=== PATIENT | female | born 1985 | race American Indian/Alaskan Native ===

== ENCOUNTER 2018-05-31 19:04 | Emergency (ER) | payer OTHER ==
[2018-05-31 19:13] VITALS: BP 121/66
[2018-05-31] MEDS ORDERED: MOTRIN PO ONE (22:10)
[2018-05-31] MEDS ORDERED: MOTRIN ONE (22:16)
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
[2018-06-01] MEDS ORDERED: NORCO 5/325 PO ONE (01:20)
[2018-06-01] MEDS ORDERED: NORCO 5/325 ONE (01:23)
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
== END 2018-06-01 03:15 | disposition home or self-care (01) ==
LOC: ED 19:04
DX: M54.5 Low back pain (principal); F17.200 Nicotine dependence, unspecified, uncomplicated; V49.09XA Driver injured in collision with other motor vehicles in nontraffic accident, initial encounter; Y93.89 Activity, other specified; Y99.8 Other external cause status; Y92.488 Other paved roadways as the place of occurrence of the external cause
CPT/HCPCS: 72070; 72100

== ENCOUNTER 2019-04-27 21:25 | Emergency (ER) | payer OTHER ==
--- NOTE | 2019-04-27 22:26 | Emergency Department Report ---
Blank Doc - Documentation Documentation: This is a 34-year-old female that presents with left hip pain. Denies any inj uries or trauma. This initial assessment/diagnostic orders/clinical plan/treatment(s) is/are subject to change based on patient's health status, clinical progression and re- assessment by fellow clinical providers in the ED. Further treatment and workup at subsequent clinical providers discretion. Patient/guardians urged not to elope from the ED as their condition may be serious if not clinically assessed and managed. Initial orders include: 1- Patient sent to [facility] for further evaluation and treatment 2- Xray
[2019-04-27 23:52] VITALS: BP 101/66
--- NOTE | 2019-04-27 23:53 | Emergency Department Report ---
ED Extremity Problem HPI - General Chief complaint: Extremity Problem,Nontraumatic Stated complaint: LEFT LEG PAIN Time Seen by Provider: 04/27/19 22:25 Source: patient Mode of arrival: Ambulatory Limitations: No Limitations - History of Present Illness Initial comments: 34-year-old -Russian female presents to the emergency room for left hip pain 2 weeks. Patient denies any trauma. Patient has not taken anything for pain. Patient reports she is not able to ambulate. Patient reports a past medical history of sleep disorder. MD Complaint: extremity pain Onset/Timin -: week(s) Location: left, lower extremity (hip) History of Same: Yes Severity scale (0 -10): 10 Quality: aching Consistency: intermittent Improves with: nothing Worsens with: walking Associated Symptoms: denies other symptoms - Related Data Previous Rx's Medication Instructions Recorded Last Taken Type Diclofenac Sodium 50 mg PO Q8H PRN #30 tablet. 06/01/18 Unknown Rx Naproxen [Naprosyn] 500 mg PO BID PRN #20 tablet 04/27/19 Unknown Rx Allergies Allergy/AdvReac Type Severity Reaction Status Date / Time No Known Allergies Allergy Unverified 05/31/18 19:13 ED Review of Systems ROS: Stated complaint: LEFT LEG PAIN Other details as noted in HPI Comment: All other systems reviewed and negative ED Past Medical Hx - Past Medical History Additional medical history: Sleeping Disorder - Surgical History Past Surgical History?: No - Social History Smoking Status: Current Some Day Smoker Substance Use Type: None - Medications Home Medications: Home Medications Medication Instructions Recorded Confirmed Last Taken Type Diclofenac Sodium 50 mg PO Q8H PRN #30 tablet. 06/01/18 Unknown Rx Naproxen [Naprosyn] 500 mg PO BID PRN #20 tablet 04/27/19 Unknown Rx ED Physical Exam - General Limitations: No Limitations General appearance: alert, in no apparent distress - Head Head exam: Present: atraumatic, normocephalic - Eye Eye exam: Present: normal appearance - ENT ENT exam: Present: mucous membranes moist - Neck Neck exam: Present: full ROM - Expanded Lower Extremity Exam Left Hip exam: Present: full ROM Upper Leg exam: Present: normal inspection, full ROM Knee exam: Present: normal inspection, full ROM Lower Leg exam: Present: normal inspection, full ROM Gait: Positive: observed and normal - Back Exam Back exam: Present: normal inspection - Neurological Exam Neurological exam: Present: alert, oriented X3 - Psychiatric Psychiatric exam: Present: normal affect, normal mood ED Medical Decision Making - Radiology Data Radiology results: report reviewed Patient: JORGE L GRAHAM MR#: [id number] : 1985 Acct:[id number] Age/Sex: 34 / F ADM Date: 04/27/19 Loc: ED Attending Dr: Ordering Physician: NANCY CHAHAL NP Date of Service: 04/27/19 Procedure(s): XR hip 2-3V LT Accession Number(s): [id number] cc: NANCY CHAHAL NP Fluoro Time In Minutes: PROCEDURE: Left hip. TECHNIQUE: AP pelvis, frog leg lateral view of the left hip. HISTORY: Hip pain. COMPARISONS: None. FINDINGS: The bones appear intact without fracture or dislocation. The joint spaces appear normal. The soft tissues are unremarkable. IMPRESSION: Normal study. This document is electronically signed by Shawn Pena MD., Apr 27 2019 11:51:14 PM ET Transcribed By: MRM Dictated By: SHAWN PENA MD Electronically Authenticated By: SHAWN PENA MD Signed Date/Time: 04/27/192352 DD/ 47 TD/TT: 04/27/192247 - Medical Decision Making 34-year-old comes in for left hip pain. Patient x-rays were normal examination. Discussed outpatient she can take ibuprofen or naproxen for pain management. Critical care attestation.: If time is entered above; I have spent that time in minutes in the direct care of this critically ill patient, excluding procedure time. ED Disposition Clinical Impression: Pain in left hip, Morbidly obese Disposition: DC-01 TO HOME OR SELFCARE Is pt being admited?: No Does the pt Need Aspirin: No Condition: Stable Instructions: Arthralgia (ED) Additional Instructions: Take pain medication as needed. Follow up with her primary care provider. Prescriptions: Naproxen [Naprosyn] 500 mg PO BID PRN #20 tablet PRN Reason: Pain , Severe (7-10) Referrals: VITALIY HICKS NP-C [Primary Care Provider] - 3-5 Days
[2019-04-27] MEDS ORDERED: IBUPROFEN PO ONE (23:58)
== END 2019-04-28 00:21 | disposition home or self-care (01) ==
LOC: ED 21:25
DX: M25.552 Pain in left hip (principal); E66.01 Morbid (severe) obesity due to excess calories; F17.200 Nicotine dependence, unspecified, uncomplicated
CPT/HCPCS: 99283